=== PATIENT | female | born 1960 | race Caucasian/White ===

== ENCOUNTER 2017-05-12 10:54 | Inpatient (IN) ==
[2017-05-09 18:33] LABS: Basophils # (Auto) 0 K/mcL (0.0-0.3); Basophils % (Auto) 0.6 % (0.0-2.0); Eosinophils # (Auto) 0.2 K/mcL (0.0-0.7); Eosinophils % (Auto) 2.3 % (0.0-7.0); Granulocytes % (Auto) 61.2 % (38.0-78.0); Mean Cell Volume 95.8 fL (80.0-100.0); Mean Corpuscular HGB Conc 34.4 g/dL (31.0-36.0); Monocytes # (Auto) 0.6 K/mcL (0.1-0.9); Monocytes % (Auto) 7.9 % (1.0-12.0); Platelet Count 338 K/mcL (140-440); Red Cell Distribution Width 13.5 % (11.5-14.5)
[2017-05-09 19:03] LABS: Blood Urea Nitrogen 26 mg/dl (6-20)
[~2017-05-12 10:54] MED LIST: ACETAMINOPHEN 500 MG TABLET PO SCH; CELECOXIB 200 MG CAPSULE PO SCH; KETOROLAC 30 MG, ROPIVACAINE HCL/PF 49.5 ML, EPINEPHrine 0.5 MG, 0.9 % SODIUM CHLORIDE ... IJ SCH; PREGABALIN 75 MG CAPSULE PO SCH; ceFAZolin 1 GM VIAL IV SCH; oxyCODONE 10 MG TAB.ER.12H PO SCH
[2017-05-12 11:42] LABS: Appearance,Urine HAZY; Bacteria,Urine 0 /hpf (0); Bilirubin,Urine NEG (NEG); Color,Urine YELLOW; Glucose,Urine (UA) NEGATIVE (NEG); Leukocyte Esterase,Urine 500 /uL (NEG); Mucus,Urine FEW /hpf (0); Nitrate,Urine NEG (NEG); Protein,Urine NEG (NEG); Specific Gravity,Urine 1.024 (1.000-1.035); Urine Blood 0.03 mg/dL (<0.03); Urine Hyaline Cast 13 /lpf (0-2); Urine RBC 9 /hpf (0-1); Urine Squamous Epithelial Cell 1 /hpf (0-4); Urine WBC 28 /hpf (0-4); Urobilinogen,Urine NEG (NEG)
[2017-05-12] MEDS ORDERED: GENTAMICIN PER PHARMACY IV ONE (12:11)
[2017-05-12] MEDS ORDERED: GENTAMICIN SULFATE 210 MG in 0.9 % SODIUM CHLORIDE 250 ML IV ONE (12:30)
[2017-05-12 12:54] LABS: Appearance,Urine CLEAR; Bacteria,Urine 0 /hpf (0); Bilirubin,Urine NEG (NEG); Color,Urine YELLOW; Glucose,Urine (UA) NEGATIVE (NEG); Leukocyte Esterase,Urine 25 /uL (NEG); Mucus,Urine FEW /hpf (0); Nitrate,Urine NEG (NEG); Protein,Urine NEG (NEG); Specific Gravity,Urine 1.023 (1.000-1.035); Urine Blood NEG mg/dL (<0.03); Urine RBC 1 /hpf (0-1); Urine Squamous Epithelial Cell < 1 /hpf (0-4); Urine WBC 3 /hpf (0-4); Urobilinogen,Urine NEG (NEG)
[2017-05-12] MEDS ORDERED: MIDAZOLAM 2 MG/2 ML VIAL IV ONE (13:15)
[2017-05-12] MEDS ORDERED: ROPIVACAINE HCL/PF 20 ML VIAL IJ ONE (13:15)
[2017-05-12] MEDS ORDERED: PROPOFOL 200 MG/20 ML VIAL IV ONE (13:15)
[2017-05-12] MEDS ORDERED: GLYCOPYRROLATE 0.2 MG/ML VIAL IV ONE (13:15)
[2017-05-12] MEDS ORDERED: LIDOCAINE HCL/PF 100 MG/5 ML SYRINGE IV ONE (13:15)
[2017-05-12] MEDS ORDERED: KETAMINE 100 MG/ML ML IV ONE (13:15)
[2017-05-12] MEDS ORDERED: ONDANSETRON 4 MG/2 ML VIAL IV ONE (13:15)
[2017-05-12] MEDS ORDERED: TRANEXAMIC ACID 1,000 MG/10 ML VIAL IV ONE ×2 (13:15→14:54)
[2017-05-12] MEDS ORDERED: PHENYLEPHRINE 10 MG/ML VIAL IV ONE (13:15)
[2017-05-12] MEDS ORDERED: IPRATROPIUM/ALBUTEROL 3 ML AMPUL.NEB NEB PRN (14:27)
[2017-05-12] MEDS ORDERED: BENZOCAINE/MENTHOL 1 LOZENGE PO PRN ×2 (14:27→14:54)
[2017-05-12] MEDS ORDERED: METHOCARBAMOL 1,000 MG/10 ML VIAL IV PRN (14:27)
[2017-05-12] MEDS ORDERED: fentaNYL 100 MCG/2 ML VIAL IV PRN (14:27)
[2017-05-12] MEDS ORDERED: ONDANSETRON 4 MG/2 ML VIAL IV PRN ×2 (14:27→14:54)
[2017-05-12] MEDS ORDERED: ePHEDrine 50 MG/ML AMPUL IV PRN (14:27)
[2017-05-12] MEDS ORDERED: PROMETHAZINE 25 MG/ML VIAL IV PRN (14:27)
[2017-05-12] MEDS ORDERED: MEPERIDINE 25 MG/ML SYRINGE IV PRN (14:27)
[2017-05-12] MEDS ORDERED: LACTATED RINGERS 1,000 ML IV SCH (14:30)
[2017-05-12] MEDS ORDERED: GENTAMICIN SULFATE 800 MG/20 ML VIAL IR ONE (14:37)
[2017-05-12] MEDS ORDERED: FLEETS ADULT ENEMA PR PRN (14:54)
[2017-05-12] MEDS ORDERED: BISACODYL 10 MG SUPP.RECT PR PRN (14:54)
[2017-05-12] MEDS ORDERED: HYDROmorphone 2 MG/ML SYRINGE IV PRN (14:54)
[2017-05-12] MEDS ORDERED: TEMAZEPAM 15 MG CAPSULE PO PRN (14:54)
[2017-05-12] MEDS ORDERED: ACETAMINOPHEN 325 MG TABLET PO PRN (14:54)
[2017-05-12] MEDS ORDERED: MAGNESIUM HYDROXIDE 30 ML ORAL.SUSP PO PRN (14:54)
[2017-05-12] MEDS ORDERED: POLYETHYLENE GLYCOL 3350 17 GM PACKET PO PRN (14:54)
--- NOTE | 2017-05-12 14:54 | Brief Operative Note ---
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
--- NOTE | 2017-05-12 15:18 | Operative Note ---
DATE OF OPERATION: 05/12/2017 PREOPERATIVE DIAGNOSIS: Right knee medial joint degenerative arthritis. 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 PROCEDURE: Right total knee arthroplasty using the AD robot. SURGEON: Modesto Toure MD INSTALLER: Jason Harp PA-C ANESTHESIA: General LMA anesthesia. COMPLICATIONS: None. TOTAL TOURNIQUET TIME: 54 minutes. IMPLANTS PLACED: Per nurse's note. These were cemented femoral and tibial components from [employer] with a 9 mm poly as well as a 33 mm patellar button. DESCRIPTION OF PROCEDURE: The patient was brought to the operating room and put to sleep with general LMA anesthesia. Once asleep, the patient had the right leg confirmed as the operative site with a timeout. The leg was exsanguinated and tourniquet inflated to 250 pounds of pressure. Once this was done, I then made a midline incision and mid vastus approach performed. We inspected the medial compartment which showed severe arthritis and ACL reconstruction appeared to be intact but the trochlear groove and the lateral compartment had bone exposed. With these findings, with all three compartments having bone exposed, we proceeded with a total knee arthroplasty. We converted the system over to AD total knee arthroplasty using [place] components. Two pins above and below the knee were made, we registered the center of hip rotation, the medial and lateral malleoli were registered with the robot as well as the intra-articular pins, one on the femur, one on the tibia. We then registered 30 points on the femur and 30 points on the tibia. Once these were confirmed, we balanced the knee, both at 15 degrees and 90 degrees. Once the components were perfectly aligned and balanced using the [employer] robot. We then brought the robot in and registered the robot, made our distal femoral cut and posterior chamfer cut. Bony fragments were removed. We then made our and posterior, anterior and anterior chamfer cuts on the femur, bony fragments were removed. We made our tibial cut using the robot after registering the robot and the tibia. The bony fragments were removed, the remnants of the meniscus were removed and osteophytes posteriorly. The capsule and soft tissues were injected with a post-inject formula. We then punched into place the appropriate size implants and set rotation using the robot. These balanced very nicely. Once balanced with the appropriate poly we then prepared the patella and this measured a 33 mm patellar button. This was cut from 23 to approximately 14 and then cemented into place the 33 mm patellar button. Once this was put into place we then cemented the remainder of the components into place, the appropriate poly placed and excess cement removed. We kept the knee at 45 degrees until all the cement was removed. We took the knee through range of motion. The patella tracked very well. After another thorough irrigation and inspection we then closed the mid vastus approach with #1 Stratified x2 stitches and then closed the skin with 2-0 Vicryl and adhesive closure. The other portals were closed with 4-0 nylon after removing the pins from the femur and tibia. Sterile bandage applied. Tourniquet deflated at 54 minutes. RBH:ebonie Job ID: [id number] Doc ID: [id number] Modesto Toure MD
--- NOTE | 2017-05-12 15:40 | XRay Report ---
CLINICAL INFORMATION: Postop total knee prostheses COMPARISON: None. FINDINGS: Total knee prostheses is anatomically aligned. No osseous abnormality. Periarticular gas and soft tissues seen as expected IMPRESSION: Negative Interpreted and Authenticated by: Param Rees 05/12/17
[2017-05-12] MEDS: 0.45 % SODIUM CHLORIDE 1,000 ML IV SCH (17:11)
[2017-05-12] MEDS: KETOROLAC 15 MG/ML VIAL IV SCH (18:05)
[2017-05-12] MEDS ORDERED: SENNOSIDES 1 TABLET PO SCH (21:00)
[2017-05-12] MEDS: ASPIRIN 325 MG ENTERIC COATED TABLET PO SCH (21:52)
[2017-05-12] MEDS: HYDROcodone/APAP 10/325MG TABLET PO PRN (21:52)
[2017-05-12] MEDS: DOCUSATE SODIUM 100 MG CAPSULE PO SCH (21:52)
[2017-05-12] MEDS: ceFAZolin 1 GM VIAL IV SCH (21:54)
[2017-05-12] MEDS: 0.9 % SODIUM CHLORIDE 10 ML SYRINGE IV SCH (21:54)
[2017-05-13] MEDS: KETOROLAC 15 MG/ML VIAL IV SCH ×2 (00:08→06:02)
[2017-05-13] MEDS: 0.45 % SODIUM CHLORIDE 1,000 ML IV SCH ×2 (00:08→11:33)
[2017-05-13] MEDS: HYDROcodone/APAP 10/325MG TABLET PO PRN ×3 (02:09→11:03)
[2017-05-13] MEDS: 0.9 % SODIUM CHLORIDE 10 ML SYRINGE IV SCH (05:45)
[2017-05-13] MEDS: ceFAZolin 1 GM VIAL IV SCH (05:46)
[2017-05-13] MEDS ORDERED: LEVOTHYROXINE 75 MCG TABLET PO SCH (07:30)
[2017-05-13] MEDS ORDERED: [UNRECOGNIZED DRUG - OTHER] PO SCH (09:00)
[2017-05-13] MEDS ORDERED: MULTIVIT,THER IRON,CA,FA & MIN 1 TABLET PO SCH (09:00)
[2017-05-13] MEDS ORDERED: ZINC PO SCH (09:00)
[2017-05-13] MEDS ORDERED: MAGNESIUM OXIDE 400 MG TABLET PO SCH (09:00)
[2017-05-13] MEDS ORDERED: PHENTERMINE PO SCH (09:00)
[2017-05-13] MEDS ORDERED: CALCIUM CARB PO SCH (09:00)
[2017-05-13] MEDS ORDERED: MAG OXIDE PO SCH (09:00)
[2017-05-13] MEDS ORDERED: TOPIRAMATE PO SCH (09:00)
[2017-05-13] MEDS: DOCUSATE SODIUM 100 MG CAPSULE PO SCH (09:03)
[2017-05-13] MEDS: ASPIRIN 325 MG ENTERIC COATED TABLET PO SCH (09:03)
--- NOTE | 2017-05-13 09:29 | Orthopedic Progress Note ---
Subjective Patient information: Note initiated : 05/13/17 at 9:28 am Service Date, if different from initiated Date: [] Patient: Mary Em 56 y/o F admitted on 05/12/17 for Right Uni Medial Knee with Maurice Robot. Chief Complaint: [doing well no sob no cp] Objective Vital signs: Vital Signs Temp Pulse Pulse Resp BP Pulse Ox 05/13/17 07:00 97.3 F 72 73 14 107/72 94 05/13/17 05:57 97 05/13/17 04:00 98.0 F 68 14 102/63 96 05/13/17 02:00 96 05/13/17 00:00 97.5 F 67 16 97/57 96 05/12/17 22:00 97 05/12/17 20:00 97.1 F 73 16 108/75 100 05/12/17 18:55 100 05/12/17 17:40 131/83 100 05/12/17 17:10 120/83 100 05/12/17 16:40 115/77 99 05/12/17 16:25 110/70 100 05/12/17 16:10 108/74 100 05/12/17 15:55 95.2 F L 12 103/76 97 05/12/17 15:45 97.1 F 73 13 100/67 98 05/12/17 15:35 73 16 111/63 98 05/12/17 15:30 76 15 124/69 100 05/12/17 15:25 82 16 134/78 100 05/12/17 15:21 98.4 F 81 16 135/79 100 05/12/17 11:21 97.1 F 72 16 144/98 96 Intake and Output 05/12/17 05/13/17 05/13/17 21:59 05:59 13:59 Intake Total / 2293 / 2293 Output Total 75 / 75 950 / 950 250 / 250 Balance 1930.25 / 1930.25 1343 / 1343 -250 / -250 Intake: IV 1555.25 / 1555.25 913 / 913 Sodium Chloride 0.45% 1,000 ml 913 / 913 @ 100 mls/hr IV .Q10H [facility] Rx#: [id number] Gentamicin Sulfate 210 mg In 255.25 / 255.25 Sodium Chloride 0.9% 250 ml @ 255.25 mls/hr IV ONCE ONE Rx#: [id number] Oral 450 / 450 1380 / 1380 Output: Void Amount 950 / 950 250 / 250 Estimated Blood Loss 75 / 75 Other: Meal Dinner ice cream Percent of Meal Consumed 100% 100% Feeding Ability Independent Independent # Voids 1 1 Weight 224 lb Intake & Output: Intake & Output 05/12/17 05/13/17 05/13/17 21:59 05:59 13:59 Intake Total / 2293 / 2293 Output Total 75 / 75 950 / 950 250 / 250 Balance 1930.25 / 193.25 1343 / 1343 -250 / -250 Weight 224 lb Intake: IV 1555.25 / 1555.25 913 / 913 Sodium Chloride 0.45% 1,000 ml 913 / 913 @ 100 mls/hr IV .Q10H [facility] Rx#: [id number] Gentamicin Sulfate 210 mg In 255.25 / 255.25 Sodium Chloride 0.9% 250 ml @ 255.25 mls/hr IV ONCE ONE Rx#: [id number] Oral 450 / 450 1380 / 1380 Output: Void Amount 950 / 950 250 / 250 Estimated Blood Loss 75 / 75 Other: Meal Dinner ice cream Percent of Meal Consumed 100% 100% Feeding Ability Independent Independent # Voids 1 1 Incision: Yes healing Incision clean and dry: Yes Dressing: Yes clean Weight bearing status: full Neurological exam IM: Yes oriented X3, Yes neurovascular intact Extremities exam IM: Yes Foot pink and warm (dc home), Yes neurovascular intact - Labs CBC & BMP: 05/13/17 04:45 05/09/17 17:04 Labs: Orthopedic Labs 05/09/17 17:04 PT 12.2 INR 0.9 APTT 30 05/13/17 05/09/17 04:45 17:04 Hgb 13.8 Hct 31.5 L 40.2
--- NOTE | 2017-05-13 09:31 | Discharge Summary ---
Ortho Discharge - TSA - Patient Instructions Diet: Regular Diet Activity: activity as tolerated, weight bearing as tolerated Total Shoulder Protocol: Leave immobilizer in place except for bathing and ROM. Abduction pillow. Continue to wear sling until seen by physician. [place] Pendulum : These exercises use momentum produced by your body to move your shoulder joint. Bend your knees and shift your weight to your front leg, then back, allowing your arm to swing in the same directions. Using the same technique, alternately shift your weight between your right and left legs, allowing your arm to swing from side to side. These exercises are also performed in counterclockwise and clockwise circular motions. Typically these exercises are performed several times per day, for a set number repetitions or minutes, such as 20 times in a row or 5 minutes at a time. Dressing Care: Aquacel Ag - leave on for 5 days Patient Education: Total Knee Replacement (DC) Additional Instructions: Discharge Instructions: Do the exercises at home that physical therapy gave you. You will be schedule to start physical therapy at [place] ([phone]). Please call Monday and schedule to start GABY. Take your prescription, photo ID, insurance cards, and current medication list with you to your first physical therapy appointment. Take your prescription to slate picker any medication or equipment (such as walker, crutches, toilet riser or C.P.M.) Wear comfortable clothing for your physical therapy. Weight bearing as tolerated. You have the Aquacel Ag dressing, leave in place for 7 days then remove. If dressing becomes soiled (turns black), remove and use gauze 4x4 dressing and silvasorb ointment and change daily. Keep incision clean and dry. You may start showering on post op day #2. To avoid constipation while taking any narcotic pain medication, take an over the counter stool softener/laxative. Use your Cryocuff or ice packs as directed, on for 20 minutes at a time throughout the day. This and elevation will help with pain and swelling. Call your physician for fevers above 100.5 or pain not controlled by medication. Your prescriptions are with your discharge information. Some medications were electronically transmitted to your pharmacy of choice. - Follow Up Plan Follow Up Appointments: Modesto Toure MD [Physician] - 05/23/17 1:40 pm Disposition: Home, Self-Care Prognosis: Good Rehab Potential: Good I certify that the patient requires SNF services: No Overall status at discharge: patient is back to baseline - Orders For Discharge Additional Discharge Orders: Physical Therapy at Discharge - TKA Location: Determined By Patient CPM Discharge Order Location: Determined By Patient Toilet Riser Discharge Order Location: Determined By Patient Walker Location: Determined By Patient
== END 2017-05-13 11:25 | disposition home or self-care (01) | DRG 470 ==
LOC: SUR 10:54 → MEDSUR 15:52
PROVIDERS: ADMIT Orthopaedic Surgery; ATTEND Orthopaedic Surgery